=== PATIENT | female | born 1995 | race Hispanic/Latino ===

== ENCOUNTER 2023-12-22 12:57 | Emergency (ER) | payer OTHER ==
[~2023-12-22] VITALS: Ht 161.3 cm; Wt 72.8 kg
[2023-12-22 13:00] VITALS: O2SAT 98
[2023-12-22] MEDS: HYDROCODONE/APAP 5MG-325MG TAB PO ONE (13:58)
== END 2023-12-22 13:46 | disposition home or self-care (01) ==
LOC: FSED 13:02
DX: F41.9 Anxiety disorder, unspecified (principal); R20.0 Anesthesia of skin; E28.2 Polycystic ovarian syndrome
CPT/HCPCS: 93005; 99282

== ENCOUNTER 2024-02-09 14:58 | Emergency (ER) | payer OTHER ==
[~2024-02-09] VITALS: Ht 160 cm; Wt 71.7 kg
[2024-02-09 15:05] VITALS: PULSE 63; RESP 18; TEMP 98.1; O2SAT 98
[2024-02-09] MEDS ORDERED: TYLENOL325 MG PO (15:25)
[2024-02-09] MEDS ORDERED: IBUPROFEN200 MG PO (15:25)
[2024-02-09] MEDS: ACETAMINOPHEN 325 MG TAB PO ONE (15:29)
[2024-02-09] MEDS ORDERED: ASPIRIN 325 MG TAB PO ONE (15:30)
[2024-02-09 15:42] VITALS: BP 103/64; PULSE 61
== END 2024-02-09 15:45 | disposition home or self-care (01) ==
LOC: FSED 15:01
DX: R51.9 Headache, unspecified (principal); R00.1 Bradycardia, unspecified; F41.9 Anxiety disorder, unspecified
CPT/HCPCS: 81003; 81025; 93005; 99283

== ENCOUNTER 2024-03-12 20:05 | Emergency (ER) | payer OTHER ==
[~2024-03-12] VITALS: Ht 160 cm; Wt 71.7 kg
[~2024-03-12 20:05] MED LIST: IBUPROFEN200 MG PO; TYLENOL325 MG PO
[2024-03-12 20:10] VITALS: PULSE 72; RESP 18; TEMP 98.1
[2024-03-12 21:30] VITALS: BP 128/84; PULSE 71; RESP 18; TEMP 98; O2SAT 100
== END 2024-03-12 20:39 | disposition home or self-care (01) ==
LOC: FSED 20:20
DX: L25.9 Unspecified contact dermatitis, unspecified cause (principal); F41.9 Anxiety disorder, unspecified; E28.2 Polycystic ovarian syndrome
CPT/HCPCS: 99283

== ENCOUNTER 2025-04-19 03:32 | Emergency (ER) | payer OTHER ==
[~2025-04-19] VITALS: Ht 161.3 cm; Wt 78.0 kg
[2025-04-19 03:38] VITALS: PULSE 76; RESP 18; TEMP 97.9
[2025-04-19] MEDS ORDERED: MAALOX MAXIMUM355 ML PO (04:05)
[2025-04-19] MEDS ORDERED: ONDANSETRON ODT4 MG PO (04:05)
[2025-04-19] MEDS ORDERED: PANTOPRAZOLE SO40 MG PO (04:05)
[2025-04-19] MEDS: DONNATAL/LIDOCAINE/MAALOX 30 ML SUSP PO ONE (04:25)
[2025-04-19] MEDS: ONDANSETRON HCL INJ 2MG/ML 2ML 2 MG/ML VIAL IV ONE (04:34)
[2025-04-19] MEDS: LACTATED RINGER'S 1,000 ML INJ ONE (04:34)
[2025-04-19] MEDS: KETOROLAC TROMETHAMINE 30 MG/ML VIAL IV ONE (04:35)
[2025-04-19] MEDS: FAMOTIDINE 20 MG/2 ML VIAL IV ONE (04:35)
[2025-04-19] MEDS: LIDOCAINE VISC 2% SOLN 15 ML UDC PO ONE (04:46)
[2025-04-19] MEDS: BELLADONNA ALK/PHENOBARBITAL 5 ML UDC PO ONE (04:47)
[2025-04-19] MEDS: MAGNESIUM/ALUMINUM/SIMETHICONE 30 ML UDC PO ONE (04:47)
[2025-04-19 05:05] VITALS: BP 110/74; PULSE 74; RESP 18; TEMP 98; O2SAT 97
== END 2025-04-19 05:05 | disposition home or self-care (01) ==
LOC: FSED 03:38
DX: R10.13 Epigastric pain (principal); K21.9 Gastro-esophageal reflux disease without esophagitis; E86.0 Dehydration; R11.0 Nausea; F41.9 Anxiety disorder, unspecified; E28.2 Polycystic ovarian syndrome
CPT/HCPCS: 80048; 80076; 81003; 81025; 85025; 96374; 99283; J1308; J7121; J1885; J2405